=== PATIENT | male | born 1995 | race Two or more races ===

== ENCOUNTER 2017-03-29 02:53 | Emergency (ER) | payer SELFPAY ==
--- NOTE | 2017-03-29 03:17 | ED PDOC ---
Arrival/HPI - General Time Seen by Provider: 03/29/17 02:55 Historian: Patient - History of Present Illness Narrative History of Present Illness (Text): 03/29/17 03:15 Patient eloped prior to my evaluation. Past Medical History - Provider Review Nursing Documentation Reviewed: Yes Family/Social History - Physician Review Nursing Documentation Reviewed: Yes Family/Social History: No Known Family HX Review of Systems - Review of Systems Systems not reviewed;Unavailable: Other (Eloped prior to evaluation) Physical Exam - Physical Exam Narrative Physical Exam (Text): Patient eloped prior to my evaluation. Vital Signs Reviewed: No (Eloped prior to evaluation) Medical Decision Making ED Course and Treatment: Patient eloped prior to my evaluation. - Scribe Statement The provider has reviewed the documentation as recorded by the Scribe Disposition/Present on Arrival - Present on Arrival Any Indicators Present on Arrival: No - Disposition Have Diagnosis and Disposition been Completed?: Yes Diagnosis: History of elopement from health care facility Disposition: ELOPEMENT - ER ONLY Disposition Time: 03:00 Condition: UNKNOWN
== END 2017-03-29 06:11 | disposition left against medical advice (07) ==
LOC: ED 02:53
DX: Z02.89 Encounter for other administrative examinations (principal); R10.9 Unspecified abdominal pain